=== PATIENT | male | born 1980 | race Caucasian/White ===

== ENCOUNTER 2017-04-13 06:06 | Day surgery (SDC) | payer OTHER, SELFPAY | END 2017-04-13 10:35 | disposition home or self-care (01) | PROVIDERS: Family Provider Family Medicine; Visit Provider Otolaryngology | DX: J34.2 Deviated nasal septum (principal); J32.0 Chronic maxillary sinusitis; R23.8 Other skin changes; J34.3 Hypertrophy of nasal turbinates | CPT/HCPCS: 30520; 30140; 31020; 31240; 96375; J2405; J2710 ==

== ENCOUNTER → 2017-07-25 12:27 | Outpatient (CLI) | payer OTHER, SELFPAY ==
--- NOTE | 2017-07-25 12:30 | CT_ITS ---
CT head/brain wo/w con HISTORY: Severe headaches ITS.REASON: headache above eye region, maxillary sinusitis ORDERING PHYSICIAN: Dudley Arenas MD PATIENT AGE: 36 years COMPARISON: None TECHNIQUE: Axial images obtained without contrast. Brain and bone windows reviewed. FINDINGS: No midline shift, mass effect, intracranial hemorrhage, hydrocephalus, or extra-axial fluid collection is evident. No enhancing lesions are evident. The calvarium has an unremarkable appearance. No mastoid effusion. No sinus air-fluid levels.. There is mild mucosal thickening of the ethmoid sinuses and the right maxillary sinus. IMPRESSION: 1. Negative CT head without and with contrast. 2. Mild sinus disease
== END ==
PROVIDERS: PCP Family Medicine; Visit Provider Otolaryngology
DX: R51 Headache (principal); J32.0 Chronic maxillary sinusitis
CPT/HCPCS: 70470; Q9967

== ENCOUNTER → 2018-06-12 12:44 | Outpatient (CLI) | payer SELFPAY | PROVIDERS: Visit Provider Nurse Practitioner Family | DX: Z02.4 Encounter for examination for driving license (principal) ==